=== PATIENT | male | born 1965 | race Caucasian/White ===

== ENCOUNTER 2016-07-12 17:54 | Emergency (ER) | payer SELFPAY ==
[~2016-07-12] VITALS: Ht 190.5 cm; Wt 100.0 kg
[2016-07-12 17:57] VITALS: BP 203/124; PULSE 97; RESP 24; TEMP 98; O2SAT 95
[2016-07-12 18:30] VITALS: BP 183/116; PULSE 86; RESP 20; O2SAT 95
[2016-07-12] MEDS ORDERED: METO50TA PO (18:32)
[2016-07-12 18:35] VITALS: BP 188/113; PULSE 92; RESP 20; O2SAT 95
--- NOTE | 2016-07-12 18:50 | PD ---
HPI Chief Complaint: Back/ Neck Pain or Injury Time Seen by Provider: 18:50 Travel History International Travel<30 days: No Contact w/Intl Traveler<30days: No Traveled to known affect area: No History of Present Illness HPI 51-year-old male with history of hypertension, chronic back pain and sciatica s/ p distant lumbar laminectomy presents to the ED for evaluation less than 24 hour history of left-sided back pain, radiating down the left thigh and into the left foot. Pain rated 8/10, worse with certain movements, gradual onset since bed last night. He denies recent overuse or trauma. Endorses occasional pins and needles sensation in the foot. He denies saddle anesthesia, incontinence, foot drop, weakness of the lower extremities. [facility] Past Medical History Hypertension: Yes Tetanus Vaccination: > 5 Years Influenza Vaccination: No Social History Alcohol Use: Yes (DAILY - BEER) Tobacco Use: No Substance Use: No Allergies-Medications (Allergen,Severity, Reaction): Uncoded Allergies: UNKNOWN ANTIBIOTIC (Allergy, Intermediate, RASH/PEELING SKIN, 07/12/16) Reported Meds & Prescriptions Reported Meds & Active Scripts Active Flexeril (Cyclobenzaprine HCl) 10 Mg Tab 10 Mg PO TID Ibuprofen 800 Mg Tab 800 Mg PO TID Reported Metoprolol Tartrate 50 Mg Tab 50 Mg PO DAILY Review of Systems Except as stated in HPI: all other systems reviewed are Neg Physical Exam Narrative GENERAL: Well-nourished, well-developed white male, sitting gingerly on the edge of the stretcher, in mild distress. SKIN: Warm and dry. HEAD: Normocephalic. EYES: No scleral icterus. No injection or drainage. NECK: Supple, trachea midline. No JVD or lymphadenopathy. CARDIOVASCULAR: Regular rate and rhythm without murmurs, gallops, or rubs. RESPIRATORY: Breath sounds clear and equal bilaterally. No accessory muscle use. GASTROINTESTINAL: Abdomen soft, non-tender, nondistended. Active bowel sounds. MUSCULOSKELETAL: No cyanosis, or edema. 5/5 dorsiflexion, plantar flexion, knee and hip flexion bilaterally. Straight leg raise positive on the left. NEUROLOGICAL: Awake and alert. Cranial nerves II through XII intact. Motor and sensory grossly within normal limits. Five out of 5 muscle strength in all muscle groups. Normal speech. BACK: No obvious deformity. No CVA tenderness. No midline tenderness. There is palpable spasm in the paraspinal musculature in the mid thoracic region. Data Data Last Documented VS Vital Signs Date Time Temp Pulse Resp B/P Pulse Ox O2 Delivery O2 Flow Rate FiO2 07/12/16 18:35 92 20 188/113 95 Room Air 07/12/16 17:57 98.0 Orders Orphenadrine Inj (Norflex Inj) (07/12/16 19:15) Dexamethasone Inj (Decadron Inj) (07/12/16 19:15) Oxycodone-Acetamin 7.5-325 Mg (Percocet (07/12/16 19:15) MDM Medical Decision Making Medical Screen Exam Complete: Yes Emergency Medical Condition: Yes Differential Diagnosis Lumbago versus muscle spasm versus radiculopathy versus other Narrative Course 51-year-old male with history of hypertension, chronic back pain and sciatica s/ p distant lumbar laminectomy presents to the ED for evaluation less than 24 hour history of left-sided back pain, radiating down the left thigh and into the left foot. Pain rated 8/10, worse with certain movements, gradual onset since bed last night. He denies recent overuse or trauma. Endorses occasional pins and needles sensation in the foot. He denies saddle anesthesia, incontinence, foot drop, weakness of the lower extremities. Patient is leaving tomorrow to return home to [place]. Vitals reviewed. He is hypertensive on presentation. Physical exam reveals nontoxic-appearing white male in moderate distress. Palpable spasm of the paraspinal musculature in the mid thoracic spine no midline tenderness. No loss of strength or limitations to range of motion of the BLE. No sensory neural deficits. Patient was administered IM dexamethasone, Norflex and 7.5 mm gram Percocet by mouth. He is prescribed high -dose ibuprofen 3 times a day 5 days. He was provided a brief course of muscle relaxers. He instructed to take medications as prescribed, return to normal, gentle activity as tolerated, follow up with his primary care provider or neurologist on return home. He indicated understanding of instructions, is amenable to plan of care. He is stable and discharged home. Diagnosis Primary Impression: Left lumbosacral radiculopathy Referrals: Primary Care Physician Patient Instructions: General Instructions, Sciatica (ED) Additional Instructions: Stay hydrated. Return to normal, gentle activities as tolerated. Begin 100 mg ibuprofen 3 times a day tomorrow morning. Take Flexeril up to 4 times a day as needed for muscle spasm. Do not operate a vehicle while taking muscle relaxers. Follow-up with your primary care or neurologist on return to [place]. Return to the ED for worsening of symptoms or any urgent or emergent medical condition. Med/Other Pt SpecificInfo: Prescription(s) given Scripts Cyclobenzaprine (Flexeril)10 Mg Tab10 Mg PO TID #15 TAB Ref 0 Prov:Bia Ulrich MD 07/12/16 Ibuprofen 800 Mg Qon413 Mg PO TID #15 TAB Ref 0 Prov:Bia Ulrich MD 07/12/16 Disposition: 01 DISCHARGE HOME Condition: Stable Dora Gallegos Jul 12, 2016 18:50
[2016-07-12] MEDS ORDERED: oxyCODONE/ACETAMINOPHEN 7.5 MG/325 MG TAB PO ONE (19:15)
[2016-07-12] MEDS ORDERED: DEXAMETHASONE SOD PHOS 20 MG/5 ML VIAL IM ONE (19:15)
[2016-07-12] MEDS ORDERED: ORPHENADRINE INJ 60 MG/2 ML AMP IM ONE (19:15)
[2016-07-12] MEDS ORDERED: IBUP800T23 PO (19:21)
[2016-07-12] MEDS ORDERED: CYCL1TAB29 PO (19:21)
[2016-07-13] MEDS ORDERED: HYDR-3533 PO (11:17)
== END 2016-07-12 21:02 | disposition home or self-care (01) ==
LOC: NEPA 17:54
DX: M54.17 Radiculopathy, lumbosacral region (principal); I10 Essential (primary) hypertension; M62.830 Muscle spasm of back
CPT/HCPCS: 96372; 99283; J1100; J2360

== ENCOUNTER 2016-07-13 08:53 | Emergency (ER) | payer SELFPAY ==
[~2016-07-13] VITALS: Ht 190.5 cm; Wt 100.0 kg
[~2016-07-13 08:53] MED LIST: CYCL1TAB29 PO; IBUP800T23 PO; METO50TA PO
[2016-07-13 08:54] VITALS: BP 179/112; PULSE 117; RESP 20; TEMP 98.2; O2SAT 98
[2016-07-13 09:23] VITALS: BP 190/100; PULSE 120; RESP 20; O2SAT 97
[2016-07-13] MEDS ORDERED: MORPHINE SULFATE 8 MG/ML INJ IV PUSH ONE (10:15)
[2016-07-13] MEDS ORDERED: ORPHENADRINE INJ 60 MG/2 ML AMP IM ONE (10:15)
--- NOTE | 2016-07-13 10:56 | PD ---
HPI Chief Complaint: Back/ Neck Pain or Injury Time Seen by Provider: 09:58 Travel History International Travel<30 days: No Contact w/Intl Traveler<30days: No Traveled to known affect area: No History of Present Illness HPI Patient is 51 year old male presents with right sided low back pain for the past few days. Seen here yesterday for same. [facility] pain medication given to him yesterday made him feel better but he awoke this morning in pain again. Declines saddle anesthesia leg weakness dysuria and enuresis. has a flight home to [place] today and needs something to get him through the flight. Denies trauma. PFSH Past Medical History Diminished Hearing: No Hypertension: Yes Tetanus Vaccination: > 5 Years Influenza Vaccination: No Social History Alcohol Use: Yes (DAILY - BEER) Tobacco Use: No Substance Use: No Allergies-Medications (Allergen,Severity, Reaction): Uncoded Allergies: UNKNOWN ANTIBIOTIC (Allergy, Intermediate, RASH/PEELING SKIN, 07/12/16) Reported Meds & Prescriptions Reported Meds & Active Scripts Active Lortab (Hydrocodone-Acetaminophen) 5-325 Mg Tab 1 Tab PO Q6H PRN Flexeril (Cyclobenzaprine HCl) 10 Mg Tab 10 Mg PO TID Ibuprofen 800 Mg Tab 800 Mg PO TID Reported Metoprolol Tartrate 50 Mg Tab 50 Mg PO DAILY Review of Systems Except as stated in HPI: all other systems reviewed are Neg Physical Exam Narrative GENERAL: WD/WN in NAD SKIN: Warm and dry. HEAD: Normocephalic. EYES: No scleral icterus. No injection or drainage. NECK: Supple, trachea midline. No JVD or lymphadenopathy. CARDIOVASCULAR: Regular rate and rhythm without murmurs, gallops, or rubs. RESPIRATORY: Breath sounds equal bilaterally. No accessory muscle use. GASTROINTESTINAL: Abdomen soft, non-tender, nondistended. MUSCULOSKELETAL: No cyanosis, or edema. Tenderness to Right SI Joint, minimal. No other low back tenderness. NO midline tenderness, no hip tenderness. NEURO: 5/5 strength in bilateral lower extremities. senesation normal. Ambulates with antalgic gait. BACK: Nontender without obvious deformity. No CVA tenderness. Data Data Last Documented VS Vital Signs Date Time Temp Pulse Resp B/P Pulse Ox O2 Delivery O2 Flow Rate FiO2 07/13/16 09:23 120 20 190/100 97 Room Air 07/13/16 08:54 98.2 Orders Morphine Inj (Morphine Inj) (07/13/16 10:15) Orphenadrine Inj (Norflex Inj) (07/13/16 10:15) Oxycodone-Acetamin 5-325 Mg (Percocet (07/13/16 11:00) MDM Medical Decision Making Medical Screen Exam Complete: Yes Emergency Medical Condition: Yes Differential Diagnosis Low back pain, sacroilitis, radiculopathy. Narrative Course Roomed in ED. Pain medications given. Some relief. DIscussed with patient if he is still having significant pain he could consider admission or imaging. Patient states needs to go to catch his flight. Short course of narcotics written. DIscussed need to follow up with PCP when he returns home. Cauda equina syndrome excluded clinically. Stable for discahrge. Diagnosis Primary Impression: Acute exacerbation of chronic low back pain Scripts Hydrocodone-Acetaminophen (Lortab)5-325 Mg Tab1 Tab PO Q6H PRN (PAIN) #10 TAB Ref 0 Prov:Morales Marmolejo MD 07/13/16 Disposition: 01 DISCHARGE HOME Condition: Stable Morales Marmloejo MD Jul 13, 2016 10:56
[2016-07-13] MEDS ORDERED: oxyCODONE/ACETAMINOPHEN 5 MG/325 MG TAB PO ONE (11:00)
[2016-07-13] MEDS ORDERED: HYDR-3533 PO (11:17)
== END 2016-07-13 11:30 | disposition home or self-care (01) ==
LOC: NEPA 08:53
DX: M54.5 Low back pain (principal); G89.29 Other chronic pain; I10 Essential (primary) hypertension
CPT/HCPCS: 96372; 96374; 99283; J2270; J2360